=== PATIENT | female | born 1975 | race African-American/Black ===

== ENCOUNTER 2018-01-22 08:46 | Day surgery (SDC) | payer OTHER ==
[~2018-01-22] VITALS: Ht 160 cm; Wt 69.4 kg
--- NOTE | 2018-01-22 08:34 | Anethesia Preoperative Eval ---
Anesthesia Pre-op PMH/ROS General Date of Evaluation: Jan 22, 2018 Time of Evaluation: 08:34 ASA Score: ASA 1 Mallampati Score Class I : Soft palate, uvula, fauces, pillars visible Class II: Soft palate, uvula, fauces visible Class III: Soft palate, base of uvula visible Class IV: Only hard plate visible Mallampati Classification: Class I Allergies: Coded Allergies: QUININE (Verified Allergy, Intermediate, Hives, 01/21/18) Anesthesia Pre-op Phys. Exam Airway Exam Mallampati Score: Class I David Shields MD Jan 22, 2018 08:34
--- NOTE | 2018-01-22 10:39 | Immediate Post-Op Evaluation ---
Immediate Post-Op Evalulation Immediate Post-Op Evalulation Procedure: EGD and colonoscopy Date of Evaluation: Jan 22, 2018 Time of Evaluation: 13:14 IV Fluids: 500 Blood Products: 0 Estimated Blood Loss: 0 Urinary Output: 0 Blood Pressure Systolic: 109 Blood Pressure Diastolic: 75 Pulse Rate: 80 Respiratory Rate: 16 O2 Sat by Pulse Oximetry: 100 Temperature (Fahrenheit): 97 Pain Score (1-10): 0 Nausea: No Vomiting: No Complications 0 Patient Status: awake, reacts, patent, none Hydration Status: adequate Drug: GARY GEE M.D. Jan 22, 2018 10:39
[2018-01-22] MEDS ORDERED: Propofol 200mg/20ml IV ONE (12:00)
[2018-01-22] MEDS ORDERED: LR 1000ml ONE (12:00)
[2018-01-22] MEDS ORDERED: Lidocaine 1% MPF 10mg/ml 5ml ONE (12:00)
--- NOTE | 2018-01-22 12:05 | Short Stay Surgery H&P ---
History of Present Illness History of Present Illness Chief Complaint GERDs, abdominal pains and rectal bleedings. HPI Ye Anderson is a 42 year old female who was admitted on for rectal bleedings, abdominal pains; Gerds Patient History Allergies: Coded Allergies: QUININE (Verified Allergy, Intermediate, Hives, 01/21/18) Review of Systems Cardiovascular: Reports: no symptoms Respiratory: Reports: no symptoms Skeletal: Reports: trauma Gastrointestinal: Reports: gastro esophageal reflux disease Genitourinary: Reports: no symptoms Neurologic: Reports: no symptoms Endocrine: Reports: no symptoms Hematologic: Reports: no symptoms Physical Exam Labs Laboratory Tests Test 01/22/18 09:00 Urine HCG, Qualitative Negative (NEGATIVE) Skin: normal HENT: normal Heart: normal Lungs: normal Abdomen: abnormal Extremities: normal Genitourinary: normal Plan Plan of Care Upper and lower GI endoscopies. Preop Interventions None. Summary of Findings see the reports. Attestation Are the patient's medical conditions optimized for surgery? Attestation Response: yes Ghada Dalton MD Jan 22, 2018 12:05
--- NOTE | 2018-01-22 12:06 | Pre-Procedure Note/Attestation ---
Pre-Procedure Note/Attestation Complete Prior to Procedure Planned Procedure: left Procedure Narrative: The examination od the upepr and lower GI tract. Indications for Procedure Pre-Operative Diagnosis: R/O Peptic Ul cer/Esophagitis/ Gastritis/colitis/hemorrhoids. Attestation I attest that I discussed the nature of the procedure; its benefits; risks and complications; and alternatives (and the risks and benefits of such alternatives ), prior to the procedure, with the patient (or the patient's legal hostess party sales representative). I attest that, if there was a reasonable possibility of needing a blood transfusion, the patient (or the patient's legal hostess party sales representative) was given the [place] [employer] standardized written summary, pursuant to the Dimitri Hartwell Blood Safety Act ([place] Health and Safety Code # 1645, as amended). I attest that I re-evaluated the patient just prior to the surgery and that there has been no change in the patient's H&P, except as documented below: Ghada Dalton MD Jan 22, 2018 12:06
--- NOTE | 2018-01-22 12:22 | 48 Hour Post Anesthesia Eval ---
Post Anesthesia Evaluation Procedure: EGD and colonoscopy Date of Evaluation: Jan 22, 2018 Airway: patent Nausea: No Vomiting: No Pain Intensity: 0 Hydration Status: adequate Cardiopulmonary Status: at baseline Mental Status/LOC: patient returned to baseline Post-Anesthesia Complications: 0 Follow-up care needed: ready to discharge GARY SHARP M.D. Jan 22, 2018 12:22
[2018-01-22 12:23] VITALS: BP 119/76
[2018-01-22] MEDS ORDERED: Ketorolac 30mg Inj ONE (12:37)
--- NOTE | 2018-01-22 13:02 | Endoscopy Procedure Note ---
Endoscopy Procedure Note General Indication for Procedure: Abdominal apins/rectal bleeding/heartburn Procedures Performed: EGD - Completely normal Upper GI endoscopy, biopsy was taken per random from gastric body., colonoscopy - Minimal internal hemorrhoids/ non friable, otherwise completely normal total colon. Specimen: yes Pt Tolerated Procedure Well: Yes Estimated Blood Loss: none Anesthesia Anesthesiologist: Dr. Ochoa Anesthesia: moderate sedation Medications Medication Given: see anesthesia record Inserted Devices Implant(s) used?: No Quality Quality of Bowel Preparation: Good Did scope reach the cecum?: Yes Was there any complications?: No GI Core Measures 50 yrs or older w/o bx or poly: Yes 10yrs. F/U not recommended: Yes 10 yrs. F/U needed: Yes <3yrs. since last colonoscopy: No Med reason:<3 yrs.: System Reason:<3 yrs.: Last colonoscopy >= to 3yrs: No Ghada Dalton MD Jan 22, 2018 13:02
--- NOTE | 2018-01-22 13:03 | Discharge Instructions ---
Discharge Instructions Discharge Instructions Follow up with: See the docotor after 2 weeks in the office. For Congestive Heart Failure Reminder Report to your physician any weight gain of 5 pounds or more in one week. Ghada Dalton MD Jan 22, 2018 13:03
[2018-01-22 13:09] VITALS: BP 109/75
[2018-01-22 13:14] VITALS: BP 114/72
[2018-01-22 13:19] VITALS: BP 123/75
[2018-01-22 13:40] VITALS: BP 127/74
[2018-01-22 14:15] VITALS: BP 127/75
--- NOTE | 2018-01-22 21:14 | Operative Note - Dictated ---
DATE OF OPERATION: 01/22/2018 SURGEON: Ghada Dalton M.D. PROCEDURE: Esophagogastroduodenoscopy with biopsy. PREOPERATIVE DIAGNOSIS: Abdominal pain, history of chronic gastroesophageal reflux. POSTOPERATIVE DIAGNOSIS: Completely normal upper GI endoscopy, biopsy was taken per random from gastric body. MEDICATION USED: Per Dr. Ochoa, anesthesiologist. INSTRUMENT: GIF Olympus upper GI video endoscope. DESCRIPTION OF PROCEDURE: The patient after arriving endoscopy unit, was told about risks and benefits of the procedure, which she accepted and the signed informed consent. At this time, she was put on the left lateral decubitus position. After adequate IV sedation, the scope was gently passed through the cricopharyngeal area, was lodged into the upper esophagus, and gradually advanced towards gastroesophageal junction. The entire length of the esophagus looked normal and no evidence of any abnormality, ulcers, stricture etc. was found. GE junction also looked normal. No Britt's or hiatal hernia noted. At this time, the scope was advanced into the stomach. Gastric cavity was distended. Gradually, the areas of the fundus and the body and the antrum were examined, which revealed completely normal findings and there was no any abnormality in gastric mucosa. No ulcers, tumors, hemangioma, etc., noted. The retroflexion maneuver was also applied and the area of the gastroesophageal junction was examined in a closer fashion, which revealed no particular abnormalities. At this time, one random biopsy from gastric body obtained and subsequently the scope was passed through the pylorus. First and second portion of duodenum were also found to be completely normal. Finally, the scope was pulled out and the procedure was terminated. The patient tolerated the procedure well and left the endoscopy room in good condition. Ghada Dalton M.D. DR: TERRI JOB#: [id number] CC:
--- NOTE | 2018-01-22 21:14 | History and Physical Report ---
DATE OF ADMISSION: 01/22/2018 HISTORY OF PRESENT ILLNESS: The patient is a 42-year-old [place] female, who is being seen prior to undergoing the procedure of upper and lower GI endoscopy for which she has been scheduled to receive for evaluation of gastrointestinal conditions and symptoms that she has suffered subsequent to her work injury. Basically, the applicant was seen by us in 2012, and underwent an upper GI endoscopy, which revealed evidence of mild gastritis. However, at this time, she is referred back for the continuation of symptoms of abdominal pain, mostly over the epigastric area consistent with gastroesophageal reflux disease and the chest pressure along with the rectal bleeding and significant constipation. 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 She has been complaining of occasional vomiting greenish material consistent with bile. She also does have the periods of nausea. She has been treated with AcipHex for control of her heartburn and recently was prescribed omeprazole, which she has not received yet. The applicant has had bodily pain for which, she has been prescribed narcotics including hydrocodone. Subsequently, the applicant has been experiencing pain in the rectal area, constipation, and rectal bleeding from time to time though she has been prescribed medications such as MiraLAX and Dulcolax. She denies having any difficulty swallowing. 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 However, she did not require to undergo any surgery for this condition. PAST MEDICAL HISTORY: None significant. She denies high blood pressure, high cholesterol, etc. SURGERIES: None. MEDICATIONS: The list of present medications are AcipHex, tizanidine, Zofran, and celecoxib that she takes daily. ALLERGIES: Quinine. HABITS: The applicant denies drinking alcohol or smoking cigarettes. REVIEW OF SYSTEMS: Basically history of present illness. PHYSICAL EXAMINATION: GENERAL: At this time reveals alert and oriented female, does not seem to be in any acute distress. VITAL SIGNS: All stable. HEENT: Normocephalic. Pupils equal in size and reactive to light and accommodation. No visible jaundice. Buccal cavity and tongue are midline and well hydrated. No ulcers. NECK: Supple. No JVD, thyromegaly, or adenopathy. CHEST: Clear to auscultation and percussion. No rales or rhonchi. HEART: S1 and S2 normal. Regular rhythm. No gallops or murmur. ABDOMEN: Soft, but tender over the upper part of the abdomen and some tenderness over the right lower quadrant, but there is no masses. No organomegaly. EXTREMITIES: Unremarkable. CENTRAL NERVOUS SYSTEM: Unremarkable. PRELIMINARY IMPRESSION: 1. Epigastric pain, mostly consistent with chronic gastroesophageal acid reflux, to rule out NSAID-induced peptic ulcer disease, gastritis, duodenal ulcer, and esophagitis. 2. History of rectal bleeding of uncertain etiology, rule out hemorrhoids subsequent to chronic constipation versus colitis, polyps, tumors, etc. 3. Severe anxiety and depression. RECOMMENDATION: The applicant seems to be stable at this time to undergo the procedure of upper and lower GI endoscopy for which she has been scheduled. She understands the risks and benefits and will sign the consent. Said Marielle Dalton DR: MALI JOB#: [id number] CC:
--- NOTE | 2018-01-22 21:14 | Operative Note - Dictated ---
DATE OF OPERATION: 01/22/2018 SURGEON: Ghada Dalton M.D. PROCEDURE: Total colonoscopy. PREOPERATIVE DIAGNOSES: Abdominal pain, constipation, and rectal bleeding. POSTOPERATIVE DIAGNOSIS: Minimal internal hemorrhoids, otherwise completely normal total colonoscopy up to the base of the cecum as examined. MEDICATION USED: By Dr. Ochoa, anesthesiologist. INSTRUMENT: GIF Olympus video colonoscope. DESCRIPTION OF PROCEDURE: The patient after arriving in the endoscopy unit, was told about risks and benefits of the procedure, which she accepted and signed informed consent. She was then put on the left lateral decubitus position. After adequate IV sedation, the scope was gently passed through the anal area, which revealed evidence of minimal hemorrhoidal tags and retroflexion maneuver, which was applied here revealed evidence of nonfriable minimal and small internal hemorrhoid. The rest of the rectum was completely normal. At this time, the scope was gradually advanced through the left colon reaching to the splenic flexure, transverse colon, hepatic flexure, and finally guided into the right colon all the way to the base of the cecum. All these areas remained to be normal. The colon cleanup was adequate and satisfactory. At this point, upon reaching to the base of the cecum within 7 minutes, the scope was gradually pulled out and no other abnormalities were found. The patient tolerated the procedure well and left the endoscopy room in a good condition. Ghada Dalton M.D. DR: TERRI JOB#: [id number] CC:
== END 2018-01-22 14:15 | disposition home or self-care (01) ==
LOC: GAS 08:46 → EDSTATUS 10:30 → GAS 14:15
DX: R10.9 Unspecified abdominal pain (principal); K21.9 Gastro-esophageal reflux disease without esophagitis; K64.8 Other hemorrhoids; K59.00 Constipation, unspecified; F41.9 Anxiety disorder, unspecified; F32.9 Major depressive disorder, single episode, unspecified; Z88.8 Allergy status to other drugs, medicaments and biological substances
CPT/HCPCS: 43239; 45378; 81025; J1885; J2704; J7120